=== PATIENT | male | born 1935 | race Two or more races ===

== ENCOUNTER 2024-01-15 12:28 | Inpatient (IN) | payer OTHER, MEDICARE, MEDICAID ==
[~2024-01-15] VITALS: Ht 165.1 cm; Wt 94.5 kg
[2024-01-15 13:00] VITALS: PULSE 125; RESP 21; O2SAT 94
[2024-01-15] MEDS: SODIUM CHLORIDE 0.9% 1,000 ML IVB ONE (13:04)
[2024-01-15] MEDS: ACETAMINOPHEN 325 MG TAB PO ONE (13:15)
[2024-01-15 13:34] LABS: Basophils # (auto) 0 10 ^3/uL (0-0.2); Basophils % (auto) 0.4 % (0.0-2.0); Eosinophils # (auto) 0.1 10 ^3/uL (0-0.8); Eosinophils % (auto) 0.4 % (0.0-7.0); Hematocrit 52.1 % (41.0-53.0); Hemoglobin 16.9 g/dL (13.5-17.5); Lymphocytes % (auto) 8.5 % (10.0-50.0); Mean Corpuscular Hemoglobin 30.9 pg (28.0-32.0); Mean Corpuscular Hgb Conc. 32.4 g/dL (32.0-36.0); Mean Corpuscular Volume 95.6 fL (80.0-100.0); Monocytes # (auto) 0.6 10 ^3/uL (0-1.3); Monocytes % (auto) 4.6 % (0.0-12.0); Neutrophils # (auto) 10.4 10 ^3/uL (1.6-8.6); Neutrophils % (auto) 86.1 % (37.0-80.0); Nucleated Red Blood Cells % 0.1 %; Red Blood Cells 5.45 10^6/uL (4.5-5.90); Red Cell Distribution Width 15.2 % (11.8-14.3); White Blood Cell 12.1 10^3/uL (4.4-10.8)
[2024-01-15 13:47] LABS: COVID19 ANTIGEN SOFIA FIA NEGATIVE (NEGATIVE); Rapid Influenza A Negative (Negative); Rapid Influenza B Negative (Negative)
[2024-01-15 14:00] LABS: Albumin 4.3 g/dL (3.2-4.8); Alkaline Phosphatase 115 U/L (46-116); Anion Gap 10 (5-15); Aspartate Aminotransferase 49 U/L (13-40); Calcium 9.4 mg/dL (8.7-10.4); Carbon Dioxide 25 mmol/L (20-30); Chloride 104 mmol/L (98-107); Glucose 170 mg/dL (74-106); Sodium 139 mmol/L (136-145)
[2024-01-15 14:01] LABS: Bilirubin, Total 1.2 mg/dL (0.2-1.0); Total Protein 7.4 g/dL (5.7-8.2)
[2024-01-15 14:20] LABS: Alanine Aminotransferase 20 U/L (7-40); BUN/Creatinine Ratio 24.3 (10.0-20.0); Blood Urea Nitrogen 42 mg/dL (9-23); Potassium 5.1 mmol/L (3.5-5.1)
[2024-01-15] MEDS: AZITHROMYCIN 500MG/ 250ML 250 ML IV ONE (16:13)
[2024-01-15] MEDS: FUROSEMIDE 40 MG/4 ML VIAL IV ONE (16:14)
[2024-01-15 17:27] LABS: Urine Bacteria MANY /hpf (None Seen); Urine Blood Negative /uL (Negative); Urine Clarity HAZY (Clear); Urine Color Yellow (Yellow); Urine Mucus FEW (None Seen); Urine Protein, UAD TRACE (Negative); Urine WBC 153 /hpf (0 - 3); Urine WBC Clumps PRESENT /hpf (None Seen); Urine pH 5.5 (5.0-8.0)
[2024-01-15 19:12] LABS: Sodium Urine < 10 mmol/L (40-220)
[2024-01-15 19:19] LABS: Creatinine, Urine 150.29 mg/dL (30.0-125.0)
[2024-01-15 20:00] VITALS: PULSE 91; RESP 15; O2SAT 95
[2024-01-15] MEDS: ENOXAPARIN SOD 40 MG/0.4 ML SYRINGE SC SCH (20:36)
[2024-01-15] MEDS: cefTRIAXone 1GM/50ML D5W 50 ML IV ONE (20:36)
[2024-01-15 21:16] LABS: Base Excess 0.7 mmol/L (-2.0-2.0)
[2024-01-15] MEDS: METOPROLOL TARTRATE 25 MG TAB PO SCH (22:00)
[2024-01-15] MEDS: ATORVASTATIN 20 MG TAB PO SCH (22:40)
[2024-01-15 23:25] VITALS: O2SAT 92
[2024-01-16] MEDS ORDERED: RIV15T PO (03:10)
[2024-01-16] MEDS ORDERED: GABA-1250 PO ×2 (03:10)
[2024-01-16] MEDS ORDERED: FURO40TA4 PO (03:10)
[2024-01-16] MEDS ORDERED: CARV3.1240 PO (03:10)
[2024-01-16 05:00] VITALS: BP 108/59; PULSE 102; RESP 20; TEMP 98.7; O2SAT 91
[2024-01-16 06:19] LABS: Basophils # (auto) 0 10 ^3/uL (0-0.2); Basophils % (auto) 0.1 % (0.0-2.0); Eosinophils # (auto) 0 10 ^3/uL (0-0.8); Eosinophils % (auto) 0.1 % (0.0-7.0); Hematocrit 47.3 % (41.0-53.0); Hemoglobin 15.5 g/dL (13.5-17.5); Lymphocytes # (auto) 0.6 10 ^3/uL (0.4-5.4); Lymphocytes % (auto) 4.6 % (10.0-50.0); Mean Corpuscular Hemoglobin 30.8 pg (28.0-32.0); Mean Corpuscular Hgb Conc. 32.8 g/dL (32.0-36.0); Monocytes # (auto) 0.4 10 ^3/uL (0-1.3); Monocytes % (auto) 3.2 % (0.0-12.0); Nucleated Red Blood Cells % 0.1 %; Red Blood Cells 5.03 10^6/uL (4.5-5.90); Red Cell Distribution Width 15.1 % (11.8-14.3); White Blood Cell 13.1 10^3/uL (4.4-10.8)
[2024-01-16] MEDS: FUROSEMIDE 20 MG/2 ML VIAL IV SCH (06:35)
[2024-01-16 06:40] LABS: Alanine Aminotransferase 21 U/L (7-40); Albumin 3.7 g/dL (3.2-4.8); Alkaline Phosphatase 99 U/L (46-116); Anion Gap 10 (5-15); Aspartate Aminotransferase 89 U/L (13-40); BUN/Creatinine Ratio 24.8 (10.0-20.0); Bilirubin, Total 1.1 mg/dL (0.2-1.0); Blood Urea Nitrogen 38 mg/dL (9-23); Calcium 8.8 mg/dL (8.7-10.4); Carbon Dioxide 25 mmol/L (20-30); Chloride 103 mmol/L (98-107); Glucose 138 mg/dL (74-106); Potassium 4.1 mmol/L (3.5-5.1); Sodium 138 mmol/L (136-145); Total Protein 6.7 g/dL (5.7-8.2)
[2024-01-16 08:00] VITALS: BP 91/64; PULSE 89; PULSE 98; RESP 16; RESP 18; TEMP 98; O2SAT 95; O2SAT 98
[2024-01-16] MEDS: cefTRIAXone 1GM/50ML D5W 50 ML IV SCH (09:58)
[2024-01-16] MEDS: AZITHROMYCIN 500MG/ 250ML 250 ML IV SCH (11:54)
[2024-01-16 13:00] VITALS: BP 115/57; PULSE 109; RESP 18; TEMP 97.6; O2SAT 95
[2024-01-16 17:00] VITALS: BP 105/64; PULSE 110; RESP 16; TEMP 98; O2SAT 94
[2024-01-16 20:00] VITALS: PULSE 97; RESP 18; O2SAT 94
[2024-01-16 22:00] VITALS: BP 119/50; PULSE 76; RESP 20; TEMP 98.1; O2SAT 96
[2024-01-17] VITALS (7 sets, daily range): BP systolic 101–123; BP diastolic 51–59; PULSE 58–98; RESP 16–20; TEMP 97.8–98.1; O2SAT 93–97
[2024-01-17 13:20] LABS: LDL Cholesterol 54 mg/dL (< 100); Triglycerides 221 mg/dL (< 150)
[2024-01-17 13:22] LABS: Cholesterol 101 mg/dL (< 200); HDL Cholesterol 11 mg/dL (40-59)
[2024-01-17 15:15] LABS: Alanine Aminotransferase 34 U/L (7-40); Albumin 3.6 g/dL (3.2-4.8); Alkaline Phosphatase 98 U/L (46-116); Anion Gap 7 (5-15); Aspartate Aminotransferase 120 U/L (13-40); BUN/Creatinine Ratio 33.8 (10.0-20.0); Blood Urea Nitrogen 44 mg/dL (9-23); Calcium 9.4 mg/dL (8.7-10.4); Carbon Dioxide 27 mmol/L (20-30); Chloride 106 mmol/L (98-107); Glucose 199 mg/dL (74-106); Magnesium 2.3 mg/dL (1.6-2.6); Potassium 3.9 mmol/L (3.5-5.1); Sodium 140 mmol/L (136-145)
[2024-01-17 15:16] LABS: Bilirubin, Total 0.6 mg/dL (0.2-1.0); Total Protein 6.4 g/dL (5.7-8.2)
[2024-01-17] MEDS: MAGNESIUM SULFATE 1GM/100ML 100 ML IV SCH (15:26)
[2024-01-17] MEDS ORDERED: DEXTROSE (50%) 50ML SYRG IV PRN (18:30)
[2024-01-17 19:14] LABS: Urine Bacteria FEW /hpf (None Seen); Urine Blood Negative /uL (Negative); Urine Clarity Clear (Clear); Urine Color Yellow (Yellow); Urine Protein, UAD Negative (Negative); Urine Specific Gravity 1.019 (1.001-1.035); Urine Urobilinogen Normal (Negative); Urine WBC 3 /hpf (0 - 3); Urine pH 5.5 (5.0-8.0)
[2024-01-17] MEDS: hydrALAZINE HCL 25 MG TAB PO SCH (22:00)
[2024-01-17] MEDS ORDERED: hydrALAZINE HCL 25 MG TAB PO SCH (22:00)
[2024-01-17] MEDS: ACCU-CHEK COMFORT CURVE STRIP VI SCH (23:05)
[2024-01-17] MEDS: METOPROLOL TARTRATE 25 MG TAB PO SCH (23:21)
[2024-01-17] MEDS: InsuLIN REG 1unit/0.01ml Soln (100units/ml) SC SCH (23:36)
[2024-01-18 04:44] VITALS: BP 147/42; PULSE 75; RESP 16; TEMP 97.2; O2SAT 98
[2024-01-18 05:21] LABS: Basophils # (auto) 0 10 ^3/uL (0-0.2); Basophils % (auto) 0.4 % (0.0-2.0); Eosinophils # (auto) 0.2 10 ^3/uL (0-0.8); Hematocrit 43.3 % (41.0-53.0); Hemoglobin 14.3 g/dL (13.5-17.5); Lymphocytes # (auto) 1.5 10 ^3/uL (0.4-5.4); Lymphocytes % (auto) 19.6 % (10.0-50.0); Mean Corpuscular Hemoglobin 31.2 pg (28.0-32.0); Mean Corpuscular Hgb Conc. 33.1 g/dL (32.0-36.0); Mean Corpuscular Volume 94.4 fL (80.0-100.0); Monocytes # (auto) 0.7 10 ^3/uL (0-1.3); Monocytes % (auto) 9.1 % (0.0-12.0); Neutrophils # (auto) 5.1 10 ^3/uL (1.6-8.6); Neutrophils % (auto) 67.9 % (37.0-80.0); Red Blood Cells 4.59 10^6/uL (4.5-5.90); White Blood Cell 7.5 10^3/uL (4.4-10.8)
[2024-01-18 05:38] LABS: Alanine Aminotransferase 34 U/L (7-40); Albumin 3.7 g/dL (3.2-4.8); Alkaline Phosphatase 98 U/L (46-116); Anion Gap 4 (5-15); Aspartate Aminotransferase 100 U/L (13-40); BUN/Creatinine Ratio 26.6 (10.0-20.0); Bilirubin, Total 0.7 mg/dL (0.2-1.0); Calcium 9.3 mg/dL (8.5-10.1); Carbon Dioxide 30 mmol/L (20-30); Chloride 107 mmol/L (98-107); Glucose 103 mg/dL (74-106); Potassium 3.5 mmol/L (3.5-5.1); Sodium 141 mmol/L (136-145); Total Protein 6.8 g/dL (5.7-8.2)
[2024-01-18 05:56] LABS: Blood Urea Nitrogen 29 mg/dL (9-23)
[2024-01-18 08:00] VITALS: BP 108/60; PULSE 78; PULSE 83; RESP 17; TEMP 98.3; O2SAT 98
[2024-01-18] MEDS: HYDROcodone-ACET 5/325MG TAB PO PRN (08:27)
[2024-01-18 09:00] VITALS: BP 108/60; PULSE 78; RESP 15; TEMP 97.4; O2SAT 98
[2024-01-18] MEDS: EMPAGLIFLOZIN 10 MG TAB PO SCH (10:48)
[2024-01-18] MEDS ORDERED: FLUT1INH6 INH (11:11)
[2024-01-18] MEDS: POTASSIUM CHL 20 Meq TABLET PO ONE (11:20)
[2024-01-18 13:00] VITALS: BP 104/54; PULSE 86; RESP 17; TEMP 97.9; O2SAT 98
[2024-01-18 16:59] VITALS: BP 104/54; PULSE 86; RESP 17; TEMP 97.9; O2SAT 98
[2024-01-18 17:00] VITALS: BP 105/51; PULSE 66; RESP 16; TEMP 97.2; O2SAT 96
[2024-01-18] MEDS ORDERED: RIVAROXABAN 15 MG TAB PO SCH (18:00)
== END 2024-01-18 18:10 | DRG 177 ==
LOC: ER 12:28 → EDBD 12:28 → TELE 17:49 → TELE-WESTW 17:49
PROVIDERS: ADMIT Internal Medicine; ATTEND Internal Medicine
DX: J15.69 Pneumonia due to other Gram-negative bacteria (principal); I50.43 Acute on chronic combined systolic (congestive) and diastolic (congestive) heart failure; J96.01 Acute respiratory failure with hypoxia; I13.0 Hypertensive heart and chronic kidney disease with heart failure and stage 1 through stage 4 chronic kidney disease, or unspecified chronic kidney disease; J98.11 Atelectasis; I48.92 Unspecified atrial flutter; N17.9 Acute kidney failure, unspecified; I48.20 Chronic atrial fibrillation, unspecified; N39.0 Urinary tract infection, site not specified; J15.9 Unspecified bacterial pneumonia; E78.5 Hyperlipidemia, unspecified; N18.32 Chronic kidney disease, stage 3b; I45.10 Unspecified right bundle-branch block; Z20.822 Contact with and (suspected) exposure to COVID-19; I34.0 Nonrheumatic mitral (valve) insufficiency; E11.65 Type 2 diabetes mellitus with hyperglycemia; E11.22 Type 2 diabetes mellitus with diabetic chronic kidney disease; Z95.810 Presence of automatic (implantable) cardiac defibrillator; Z74.01 Bed confinement status; Z79.01 Long term (current) use of anticoagulants; Z79.899 Other long term (current) drug therapy; Z87.891 Personal history of nicotine dependence
CPT/HCPCS: 36415; 71045; 80053; 80061; 81001; 82570; 82962; 83036; 83605; 83735; 83880; 84300; 84443; 84484; 85025; 87040; 87081; 87086; 87426; 87804; 93005; 93306; 97110; 97116; 97163; 97530; G0378; J1815